=== PATIENT | male | born 1985 | race Hispanic/Latino ===

== ENCOUNTER 2023-01-29 13:31 | Observation (INO) | payer OTHER ==
[~2023-01-29] VITALS: Ht 363.2 cm; Wt 82.5 kg
[2023-01-29] MEDS ORDERED: LACTULOSE 20 GM/30 ML UDCUP PO ONE (18:00)
[2023-01-29] MEDS ORDERED: KCL 20 MEQ ERTAB PO ONE (18:00)
[2023-01-29] MEDS ORDERED: PROPOFOL 10 MG/ML 20ML VIAL IV ONE ×3 (19:55→20:13)
[2023-01-29] MEDS ORDERED: METOCLOPRAMIDE 10 MG/2 ML VIAL ONE (20:22)
[2023-01-30 01:30] VITALS: BP 120/72; PULSE 64; RESP 18
[2023-01-30] MEDS ORDERED: ATOR10 PO (03:44)
[2023-01-30] MEDS ORDERED: DULO30CA52 PO (03:44)
[2023-01-30] MEDS ORDERED: LISI40TA9 PO (03:44)
[2023-01-30] MEDS ORDERED: AEC81 PO (03:44)
[2023-01-30 04:00] VITALS: BP 126/69; PULSE 74; RESP 18
[2023-01-30] MEDS ORDERED: ACETAMINOPHEN 325 MG TAB PO PRN (06:30)
[2023-01-30] MEDS ORDERED: MORPHINE 2 MG SYG IVP PRN (06:30)
[2023-01-30] MEDS ORDERED: ONDANSETRON 4MG INJ IVP PRN (06:30)
[2023-01-30] MEDS ORDERED: DEXTROSE 5 % AND 0.9 % NACL 1,000 ML IV SCH (06:30)
[2023-01-30 07:40] LABS: CREATININE 0.9 mg/dL (0.5-1.5); POTASSIUM 3.5 mmol/L (3.5-5.1)
[2023-01-30 07:49] LABS: HEMATOCRIT 39.1 % (42-54); MEAN CORPUSCULAR HGB CONC 33.2 g/dL (32.0-36.0); MEAN CORPUSCULAR VOLUME 87.1 fL (79-99); RED BLOOD CELL COUNT(AUTO) 4.49 MIL/uL (4.50-6.20); RED CELL DISTRIBUTION WIDTH 13.2 % (11.0-15.5); WHITE BLOOD COUNT (AUTO) 5.2 K/uL (4.8-10.8)
[2023-01-30 08:32] VITALS: BP 122/83; PULSE 74; RESP 16
[2023-01-30 11:00] VITALS: BP 118/79; PULSE 72; RESP 16
[2023-01-30 16:00] VITALS: BP 115/85; PULSE 65; RESP 16
[2023-01-30] MEDS ORDERED: ATORVASTATIN 10 MG TABLET PO SCH (21:00)
[2023-01-31 08:49] LABS: BASOPHILS # (AUTO) 0.02 K/uL (0.00-0.20); BASOPHILS % (AUTO) 0.4 % (0.0-5.0); EOSINOPHILS # (AUTO) 0.01 K/uL (0.00-0.70); EOSINOPHILS % (AUTO) 0.2 % (0.0-8.0); HEMATOCRIT 41.6 % (42-54); IMMATURE GRANULOCYTE ABSOLUTE 0.01 K/uL (0-1); LYMPHOCYTES % (AUTO) 18.3 % (21.0-51.0); MEAN CORPUSCULAR HEMOGLOBIN 29.2 pg (27.0-33.0); MEAN CORPUSCULAR HGB CONC 34.9 g/dL (32.0-36.0); MEAN CORPUSCULAR VOLUME 83.7 fL (79-99); MONOCYTES # (AUTO) 0.5 K/uL (0.1-1.0); NEUTROPHILS # (AUTO) 3.8 K/uL (1.8-7.7); NEUTROPHILS % (AUTO) 71.9 % (40.0-77.0); PLATELET COUNT (AUTO) 175 K/uL (130-400); RED BLOOD CELL COUNT(AUTO) 4.97 MIL/uL (4.50-6.20); RED CELL DISTRIBUTION WIDTH 13.1 % (11.0-15.5); WHITE BLOOD COUNT (AUTO) 5.3 K/uL (4.8-10.8)
[2023-01-31] MEDS ORDERED: LISINOPRIL 40 MG TABLET PO SCH (09:00)
[2023-01-31] MEDS ORDERED: DULOXETINE HCL 30 MG CAP PO SCH (09:00)
[2023-01-31] MEDS ORDERED: ASPIRIN 81 MG EC TAB PO SCH (09:00)
[2023-01-31 09:06] LABS: ALBUMIN 3.9 g/dL (3.5-5.0); BILIRUBIN,TOTAL 0.4 mg/dL (0.2-1.0); POTASSIUM 3.7 mmol/L (3.5-5.1); TOTAL PROTEIN, SERUM 6.9 g/dL (6.0-8.3)
[2023-01-31 09:12] LABS: SODIUM SERUM 144 mmol/L (136-145)
[2023-01-31 09:13] LABS: ALANINE AMINOTRANSFERASE 44 U/L (12-78); ASPARTATE AMINOTRANSFERASE 22 U/L (10-37); BILIRUBIN,TOTAL 0.4 mg/dL (0.2-1.0); CARBON DIOXIDE 26 mmol/L (21-32); CHLORIDE 106 mmol/L (101-111); GLOMERULAR FILTR. RATE CALC 99 mL/min (>90); GLUCOSE,RANDOM 113 mg/dL (70-105); POTASSIUM 3.4 mmol/L (3.5-5.1); TOTAL PROTEIN, SERUM 7.2 g/dL (6.0-8.3); UREA NITROGEN, BLOOD 11 mg/dL (7-18)
[2023-01-31 09:14] LABS: ACETAMINOPHEN < 1 mcg/mL (10-29); ALBUMIN 4.1 g/dL (3.5-5.0); HEMATOCRIT 41.6 % (42-54); MEAN CORPUSCULAR HEMOGLOBIN 29.2 pg (27.0-33.0); MEAN CORPUSCULAR HGB CONC 34.9 g/dL (32.0-36.0); MEAN CORPUSCULAR VOLUME 83.7 fL (79-99); RED BLOOD CELL COUNT(AUTO) 4.97 MIL/uL (4.50-6.20); RED CELL DISTRIBUTION WIDTH 13.1 % (11.0-15.5); SALICYLATE < 2.8 mg/dL (2.8-20.0); WHITE BLOOD COUNT (AUTO) 5.3 K/uL (4.8-10.8)
[2023-01-31 09:15] LABS: BASOPHILS % (AUTO) 0.4 % (0.0-5.0); EOSINOPHILS % (AUTO) 0.2 % (0.0-8.0); LYMPHOCYTES % (AUTO) 18.3 % (21.0-51.0); NEUTROPHILS % (AUTO) 71.9 % (40.0-77.0); PLATELET COUNT (AUTO) 175 K/uL (130-400)
== END 2023-01-30 19:10 ==
LOC: EDH 13:31 → 3BH 19:00 → EEVIPCON 19:00
PROVIDERS: ADMIT Internal Medicine Infectious Disease; ATTEND Internal Medicine Infectious Disease
DX: T18.2XXA Foreign body in stomach, initial encounter (principal); T18.9XXA Foreign body of alimentary tract, part unspecified, initial encounter; R10.9 Unspecified abdominal pain; Z79.899 Other long term (current) drug therapy; Z98.890 Other specified postprocedural states
CPT/HCPCS: 99284; 80053; 85025 ×2; 85730; 36415 ×2; 74176; 43247; 83735; 80048; 85027; G0378 ×22; G0481; J2704 ×3; J2765; A4223; A4657 ×3; A7002; A4222; A4663; A4216; J7030; A4606; J3490